=== PATIENT | female | born 2000 | race Caucasian/White ===

== ENCOUNTER 2018-04-18 23:20 | Emergency (ER) | payer OTHER ==
--- NOTE | 2018-04-19 01:02 | ER Document Report ---
Addendum entered and electronically signed by NETO ALCOCER PA 04/19/18 06:43: Physical Exam - Vital signs Vitals: Temp Pulse Resp BP Pulse Ox 98.7 F 69 16 118/57 L 96 04/18/18 23:21 04/18/18 23:21 04/18/18 23:21 04/18/18 23:21 04/18/18 23:21 - Notes Notes: NOTE: Previous ENT exam was entered incorrectly on the wrong patient. The accurate ENT exam is that patient has some mild bilateral maxillary sinus tenderness, obvious nasal congestion without epistaxis, hematoma, or polyp. She has very minimal posterior erythema in the pharynx, unremarkable uvula, no tonsillitis or exudates, no evidence of abscess. Unremarkable ear exam bila terally. Unremarkable ENT exam otherwise. Original Note: HPI - HPI Time Seen by Provider: 04/19/18 00:46 Pain Level: 5 Context: Patient is a 18-year-old female that comes to the emergency department for chief complaint of sore throat. She also has congestion, mild cough, pain and pressure over her sinuses. Symptoms started 4 days ago. She states she was running some fevers but has not had a fever in 24 hours. She is at 26 weeks. First . Denies abdominal pain, vaginal bleeding. She is feeling the baby move. She states she is seen 3 days ago and started on amoxicillin for suspected strep infection, she states she was not told it was definitely strep. She denies any complaints otherwise, she denies any medical history. at bedside. - CONSTITUTIONAL Constitutional: DENIES: Fever - EENT EENT: REPORTS: Sore Throat Past Medical History - General Information source: Patient - Social History Smoking Status: Never Smoker Chew tobacco use (# tins/day): No Frequency of alcohol use: None Drug Abuse: None Lives with: Family Family History: Reviewed & Not Pertinent Patient has suicidal ideation: No Patient has homicidal ideation: No Renal/ Medical History: Denies: Hx Peritoneal Dialysis Surgical Hx: Negative - Immunizations Immunizations up to date: Yes Hx Diphtheria, Pertussis, Tetanus Vaccination: Yes Vertical Provider Document - CONSTITUTIONAL General Appearance: WD/WN, No Apparent Distress, Obese - INFECTION CONTROL TRAVEL OUTSIDE OF THE [place] IN LAST 30 DAYS: No - HEENT HEENT: Atraumatic, Normocephalic. negative: Normal ENT Exam - Mild erythema of the posterior pharynx and a few exudates noted on the right tonsil, no swelling or evidence of peritonsillar abscess. Clear airway. Normal uvula. Right-sided otitis media noted with erythema of the tympanic membrane and bulging, loss of landmarks. Left is unremarkable. Normal mastoid. Normal ENT examination otherwise. - NECK Neck: Other - Mild lymphadenopathy noted over the anterior cervical area, slightly worse on the right - RESPIRATORY Respiratory: Breath Sounds Normal, No Respiratory Distress - CARDIOVASCULAR Cardiovascular: Regular Rate, Regular Rhythm - GI/ABDOMEN Gastrointestinal: Abdomen Soft, Abdomen Non-Tender - BACK Back: Normal Inspection - MUSCULOSKELETAL/EXTREMETIES Musculoskeletal/Extremeties: MAEW, FROM, Non-Tender - NEURO Level of Consciousness: Awake, Alert, Appropriate - DERM Integumentary: Warm, Dry, No Rash Course - Vital Signs Vital signs: Temp Pulse Resp BP Pulse Ox 98.7 F 69 16 118/57 L 96 04/18/18 23:21 04/18/18 23:21 04/18/18 23:21 04/18/18 23:21 04/18/18 23:21 Discharge - Discharge Clinical Impression: Sore throat Sinusitis Qualifiers: Sinusitis location: maxillary Chronicity: acute Recurrence: not specified as recurrent Qualified Code(s): J01.00 - Acute maxillary sinusitis, unspecified Upper respiratory infection Qualifiers: URI type: unspecified URI Qualified Code(s): J06.9 - Acute upper respiratory infection, unspecified Condition: Stable Disposition: HOME, SELF-CARE Additional Instructions: Your strep test is negative. Your evaluation is most consistent with a viral upper respiratory infection and developing sinus infection. Continue your amoxicillin, this is coverage for the sinus infection component. Other medications such as Flonase [id number], Benadryl at night to help with congestion and sleep, and continue Tylenol can help. Drink plenty fluids and rest. Symptoms should eventually resolve. Follow-up with primary care. Return for any concerning or worsening symptoms including spiking fevers, difficulty breathing, or any other concerning or worsening symptoms Prescriptions: Cetirizine HCl [Zyrtec 10 mg Tablet] 1 tab PO DAILY #30 tablet Fluticasone Propionate [Flonase Nasal [place] 50 Mcg/[place] 16 gm] 2 sprays NASL Q12 #1 inhaler Forms: Return to Work
[2018-04-19 01:14] VITALS: BP 115/75
== END 2018-04-19 01:14 | disposition home or self-care (01) ==
LOC: ER 23:20
DX: O26.892 Other specified pregnancy related conditions, second trimester (principal); J01.00 Acute maxillary sinusitis, unspecified; J06.9 Acute upper respiratory infection, unspecified; J02.9 Acute pharyngitis, unspecified; R09.81 Nasal congestion; R05 Cough; R50.9 Fever, unspecified; Z3A.26 26 weeks gestation of pregnancy
CPT/HCPCS: 87070; 87880; 99283